=== PATIENT | male | born 1935 | race Caucasian/White ===

== ENCOUNTER 2023-06-06 07:15 | Day surgery (SDC) | payer MEDICARE ==
[2023-06-06] MEDS ORDERED: Lidocaine 1% PF 5 ML VIAL ONE (07:32)
[2023-06-06] MEDS ORDERED: Sodium Bicarbonate 2.5 MEQ/5 ML VIAL ONE (07:32)
[2023-06-06 07:57] VITALS: BP 156/75; TEMP 97.5
== END 2023-06-06 11:10 | disposition home or self-care (01) ==
LOC: CSHRAD 07:15 → EDSTATUS 08:00 → CSHRAD 11:10
PROVIDERS: ATTEND Neurological Surgery
DX: M54.50 Low back pain, unspecified (principal); M54.12 Radiculopathy, cervical region
CPT/HCPCS: 62305; 72126; 72132